=== PATIENT | female | born 1960 | race Caucasian/White ===

== ENCOUNTER 2019-04-15 10:55 | Inpatient (IN) ==
--- NOTE | 2019-04-04 15:06 | PAT Medication Instructions ---
Medication Instructions Date of Service April 04, 2019 Home Medications duloxetine 20 mg capsule,delayed release 20 mg PO QAM albuterol sulfate [Ventolin HFA] 2 puff INHALATION Q6H PRN aspirin [Aspirin Low Dose] 162 mg PO HS atenolol 25 mg PO BID fexofenadine [Emma Allergy] 180 mg PO QAM furosemide 40 mg PO DAILY PRN omeprazole 20 mg PO HS oxycodone-acetaminophen 1 tab PO DAILY PRN potassium chloride 10 meq PO DAILY PRN rosuvastatin [Crestor] 20 mg PO QPM DO NOT take the morning of surgery fexofenadine [Emma Allergy] 180 mg PO QAM furosemide 40 mg PO DAILY PRN potassium chloride 10 meq PO DAILY PRN Take morning of surgery With a small sip of water, OTHERWISE NOTHING TO EAT OR DRINK AFTER MIDNIGHT: duloxetine 20 mg capsule,delayed release 20 mg PO QAM albuterol sulfate [Ventolin HFA] 2 puff INHALATION Q6H PRN (use if needed; please bring with you to hospital day of surgery if possible) atenolol 25 mg PO BID oxycodone-acetaminophen 1 tab PO DAILY PRN (okay to take up to 4 hours prior to surgery if needed) Take evening before surgery albuterol sulfate [Ventolin HFA] 2 puff INHALATION Q6H PRN (if needed) aspirin [Aspirin Low Dose] 162 mg PO HS atenolol 25 mg PO BID furosemide 40 mg PO DAILY PRN (if needed) omeprazole 20 mg PO HS oxycodone-acetaminophen 1 tab PO DAILY PRN (if needed) potassium chloride 10 meq PO DAILY PRN (if needed) rosuvastatin [Crestor] 20 mg PO QPM Other Notes If you have any questions please call us at [phone] or [phone] or [phone] or [phone]
--- NOTE | 2019-04-05 09:40 | Anesthesiology Consultation ---
Date of Service April 05, 2019 Assessment & Plan (1) Encounter for pre-operative examination: Cardiology clearance 04/12/2019: "She presents today describing stable cardiac signs and symptoms. She has no symptoms suggestive of angina, and her EKG reveals stable findings. I recommend proceeding to elective knee replacement without further cardiac testing with an estimated low risk of perioperative cardiac complication... At this point I counseled her to reduce her aspirin dose from 162 mg of aspirin daily to 81 mg of aspirin daily. This can be continued throughout her operation without interruption." Chart Review Chart Review: Acceptable Risk for Surgery and Patient seen in Pre Admission Testing Teaching & Discussion Instructed NPO after midnight before surgery, except medications with 15 cc of water. Medication instructions provided according to the PAT guidelines. History Surgery Operation Date: 04/15/19 11:30 Proposed Procedures p Right Total Knee Arthroplasty - Rai Thrasher MD Height/Weight Height: 5 ft 4 in Weight: 87.3 kg Allergies Allergy/AdvReac Type Severity Reaction Status Date / Time adhesive tape Allergy Intermediate rash and Verified 03/30/19 12:48 redness pantoprazole Allergy Unknown AFFECTS Verified 03/30/19 12:47 CONCENTRATION bupropion [From Wellbutrin] AdvReac Intermediate Confusion Verified 03/30/19 12:47 hydrocodone AdvReac Mild HEADACHE Verified 03/30/19 12:47 Medications Home Medications Medication Instructions Recorded Confirmed Last Taken duloxetine 20 mg capsule,delayed 20 mg PO QAM 03/28/19 03/30/19 Unknown release albuterol sulfate [Ventolin HFA] 2 puff INHALATION Q6H PRN 03/30/19 03/30/19 Unknown aspirin [Aspirin Low Dose] 162 mg PO HS 03/30/19 03/30/19 Unknown atenolol 25 mg PO BID 03/30/19 03/30/19 Unknown fexofenadine [Emma Allergy] 180 mg PO QAM 03/30/19 03/30/19 Unknown furosemide 40 mg PO DAILY PRN 03/30/19 03/30/19 Unknown omeprazole 20 mg PO HS 03/30/19 03/30/19 Unknown oxycodone-acetaminophen 1 tab PO DAILY PRN 03/30/19 03/30/19 Unknown potassium chloride 10 meq PO DAILY PRN 03/30/19 03/30/19 Unknown rosuvastatin [Crestor] 20 mg PO QPM 03/30/19 03/30/19 Unknown Past Medical History Medical History Anxiety Asthma allergy/exercise induced, well controlled. CAD (coronary artery disease) Initial eval for chest pain showed inconclusive stress test. Subsequent cardiac MRI limited by artifact. Cath declined at that time. Pt to PAT for TKA 09/2017. Note to cardio prompted cath --subsequent CABG x 3. Chronic back pain Degenerative disc disease Degenerative joint disease, right, ankle Depression GERD (gastroesophageal reflux disease) Hyperlipidemia Hypertension Osteoarthritis Right knee DJD Sciatica Stable angina with palpitations -- since Dr Colmenares changed medication October 2018 symptoms are improving. Exercise / Class Metabolic Activity II 4-5 Yardwork/Stairs/Walk up hill (Mild +SOB with exertion/FOS but denies CP. 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 Past Family History Family History (Updated 03/30/19 @ 13:00 by Ivonne Dunbar RN) Grandmother (Maternal) FHx: myocardial infarction FHx: breast cancer Past Surgical History Surgical History (Updated 04/05/19 @ 13:44 by Jaspal Fung) History of cardiac cath 09/2017 History of colonoscopy History of coronary artery bypass graft x3 vessels (September 2017) LEONIDES Pinto. Follows with Dr. Colmenares History of esophageal dilatation History of esophagogastroduodenoscopy (EGD) History of open reduction and internal fixation (ORIF) procedure right ankle History of tonsillectomy Hx of meniscectomy of right knee S/P bilateral breast reduction Past Anesthesia History No Hx of Anesthesia Complications and No Family Hx of Anesthesia Complications History of PONV No Hx of PONV and Hx of Motion Sickness Social History Smoking Status: Never smoker Do You Dip or Chew Tobacco: No Hx Alcohol Use: Yes alcohol intake frequency: holidays/special occasions only Hx Substance Use: No substance use type: does not use Review of Systems Pt denies any recent chest pain, shortness of breath, palpitations, cough, fever or URI. Physical Exam Vital Signs BP: 116/74 P: 65bpm SPO2: 98% RA T: 98.3 F R: 16 ENMT Mouth: + dental restorations (one crown bottom R) and + chipped teeth (bottom L side few broken); no loose teeth Thyromental Distance: > or= 3.5 Finger Breadths (3.5) Mallampati Class: II Neck normal visual inspection; neck extension not limited Respiratory normal respiratory effort Auscultation: lungs clear to auscultation bilaterally Cardiovascular Rate/Rhythm: regular rate and regular rhythm Heart Sounds: no murmur Vessels: no carotid bruit Extremities: no edema Midline sternotomy scar. Testing Laboratory Results 04/05/19 09:15 04/05/19 09:15 PT 10.7 Seconds (9.0-12.0) 04/05/19 09:15 INR 1.0 (0.9-1.1) 04/05/19 09:15 APTT 27.2 Seconds (21.0-31.0) 04/05/19 09:15 Blood Type O Positive 04/05/19 09:15 Antibody Screen NEGATIVE 04/05/19 09:15 Electrocardiogram Date: 08/31/18 Findings: + NSR @ (62bpm) Possible LAE. NSTWA. Chest X-Ray Date: 04/05/19 Findings: + NAD Echocardiogram Date: 01/05/19 EF: 65-69% Mild concentric LVH. Left ventricular wall motion is normal. Grade 1 diastolic dysfunction. No significant valvular heart disease.
--- NOTE | 2019-04-05 10:17 | XRay Report ---
XR chest Pre-admission PA/Lat CLINICAL HISTORY: Preoperative chest COMPARISON STUDY: August 2017 FINDINGS: There are postsurgical changes of a midline sternotomy. There is no failure. There is no fo ariel pulmonary consolidation. There are no pleural effusions.[ IMPRESSION: No active disease in the chest. Electronically signed by: Tayo Willams M.D. 04/05/2019 10:16 AM
[2019-04-05 11:09] LABS: Basophils # (auto) 0.03 K/uL (0-0.2); Basophils % (auto) 0.8 %; Eosinophils % (auto) 5.5 %; Hematocrit (blood only) 39.8 % (37-47); Immature Granulocytes # (auto) 0.01 K/uL (0.00-0.02); Immature Granulocytes % (auto) 0.3 %; Lymphocytes # (auto) 1.31 K/uL (1.2-3.4); Lymphocytes % (auto) 36.1 %; Mean Corpuscular Hemoglobin 29.3 pg (25-34); Mean Corpuscular Hgb Conc 32.7 g/dL (32-36); Mean Corpuscular Volume 89.6 fL (80-100); Mean Platelet Volume 10.5 fL (7.4-10.4); Monocytes # (auto) 0.33 K/uL (0.11-0.59); Monocytes % (auto) 9.1 %; Neutrophils # (auto) 1.75 K/uL (1.4-6.5); Neutrophils % (auto) 48.2 %; Platelet Count 288 K/uL (130-400); RDW Coefficient of Variation 13.5 % (11.5-14.5); RDW Standard Deviation 44.7 fL (36.4-46.3); Red Blood Count 4.44 M/uL (4.2-5.4); White Blood Count 3.63 K/uL (4.8-10.8)
[2019-04-05 11:23] LABS: Partial Thromboplastin Time 27.2 Seconds (21.0-31.0); Prothrombin Time 10.7 Seconds (9.0-12.0)
[2019-04-05 11:50] LABS: BUN Creatinine Ratio 20.9 (10-20); Calcium 9.3 mg/dl (8.5-10.1); Creatinine Clr Calc Pharmacy 88.5 ml/min; Est GFR (African American) 102.6; Est GFR (Non-African American) 88.5; Potassium 4.3 mmol/L (3.5-5.1)
[~2019-04-15 10:55] MED LIST: ACETAMINOPHEN 500 MG TAB PO SCH; BUPIVACAINE 0.5 % 5 MG/1 ML PF 10ML VIAL ONE; BUPIVACAINE LIPOSOME/PF 266 MG, BUPIVACAINE/EPINEPHRINE 50 ML, SODIUM CHLORIDE 0.9% 30 ... INFIL SCH; BUPIVACAINE/EPINEPHRINE 0.25% 1:200,000 30 ML VIAL ONE; CEFAZOLIN 2000MG 2,000 MG/15 ML SYR IV SCH; DEXAMETHASONE SOD INJ 4 MG/ML VIAL ONE; GABAPENTIN 600 MG DOSE PO SCH; LR 500ML BOLUS, THEN 15ML/HR IV SCH; LR 60ML/HR IV SCH; METOCLOPRAMIDE HCL 10 MG TABLET PO SCH; SCOPOLAMINE 1.5 MG TDSY TD SCH; TRANEXAMIC ACID 1,000 MG **IV Intra-op IV SCH
--- NOTE | 2019-04-15 11:41 | History & Physical Bridge Note ---
Date of Service April 15, 2019 History & Physical Bridge Note I have examined the patient, reviewed the History & Physical and in the interval since the performance of the History & Physical I have noted the following changes of clinical significance: no changes noted
[2019-04-15] MEDS ORDERED: TRANEXAMIC ACID / 0.7% NACL 1000MG/100ML BAG IV ONE (12:12)
[2019-04-15] MEDS ORDERED: LIDOCAINE HCL 2% 2 ML VIAL/AMP(20MG/ML) INFIL ONE (13:21)
[2019-04-15] MEDS ORDERED: PROPOFOL IV EMULSION 10 MG/ML 20 ML VIAL IV ONE (13:22)
[2019-04-15] MEDS ORDERED: fentaNYL citrate 100 MCG/2 ML VIAL ONE (13:22)
[2019-04-15] MEDS ORDERED: MIDAZOLAM HCL 1 MG/ML 2ML VIAL ONE (13:22)
[2019-04-15] MEDS: CHECK SCOPOLAMINE PATCH PLACEMENT SCH ×3 (13:32→23:45)
[2019-04-15] MEDS ORDERED: ONDANSETRON INJ 2 MG/ML 2 ML VIAL IV PRN ×2 (13:38→17:10)
[2019-04-15] MEDS ORDERED: ePHEDrine sulfate 50 MG/ML AMP IV PRN (13:38)
[2019-04-15] MEDS ORDERED: ATROPINE SULFATE 0.1 MG/ML 10ML SYR IV PRN (13:38)
[2019-04-15] MEDS ORDERED: fentaNYL citrate 100 MCG/2 ML VIAL IV PRN (13:38)
[2019-04-15] MEDS ORDERED: BUPIVACAINE 0.25% 30 ML VIAL ONE (13:55)
[2019-04-15] MEDS ORDERED: BUPIVACAINE LIPOSOME 1.3% 266 MG/20 ML VIAL ONE (13:56)
[2019-04-15] MEDS ORDERED: SODIUM CHLORIDE 0.9% PF 50 ML VIAL ONE (13:56)
[2019-04-15] MEDS ORDERED: EPINEPHrine INJ 1 MG/ML AMP ONE (13:56)
[2019-04-15] MEDS ORDERED: BACITRACIN INJ 50,000 UNIT VIAL ONE (13:56)
--- NOTE | 2019-04-15 15:54 | Post Operative Brief Note ---
PG Immediate Post Op with CF Date of Surgery April 15, 2019 Pre & Post Diagnosis Operation Date: 04/15/19 13:20 Pre-Op Diagnosis: Right Knee Degenerative Joint Disease Post-Op Diagnosis: Right Knee Degenerative Joint Disease I identified the patient and participated in the time-out.: Yes Procedure Operation Date: 04/15/19 13:20 Actual Procedures p Right Total Knee Arthroplasty(Right) - Rai Thrasher MD Surgeon Rai Thrasher MD Fur Blowing Machine Operator Reggie, PAC Estimated Blood Loss 50 Findings Consistent with Post-Op Diagnosis Fluids 1600 cc Specimens Specimen Description: A. Right knee bone and tissue Drains Pinedo Catheter Anesthesia Type Spinal MAC Complications none Disposition Accompanied Patient To Recovery: No Disposition: Recovery Room
--- NOTE | 2019-04-15 16:23 | XRay Report ---
XR knee RT 1 or 2V routine CLINICAL HISTORY: Surgical Post Op COMPARISON: Right knee radiographs March 28, 2019. FINDINGS: Alignment of the total right knee arthroplasty is anatomic. There is no fracture or unexpe cted radiopaque foreign body. There are skin hector. IMPRESSION: Expected findings following total right knee arthroplasty. Electronically signed by: Edvin Baker M.D. 04/15/2019 4:22 PM
[2019-04-15] MEDS ORDERED: METOCLOPRAMIDE HCL INJ 5 MG/ML 2 ML VIAL IV PRN (17:10)
[2019-04-15] MEDS ORDERED: NALOXONE HCL 0.4 MG/1 ML VIAL/CARP IV PRN (17:10)
[2019-04-15] MEDS ORDERED: MAGNESIUM HYDROXIDE SUSP 30 ML UDC PO PRN (17:10)
[2019-04-15] MEDS ORDERED: bisacodyL 10 MG SUPP PR PRN (17:10)
[2019-04-15] MEDS ORDERED: HYDROmorphone INJ 0.5 MG/0.5 ML SYR IV PRN (17:10)
[2019-04-15] MEDS ORDERED: ALBUTEROL HFA 8 GM INHALER INH PRN (17:10)
[2019-04-15] MEDS ORDERED: SODIUM CHLORIDE 0.9% 1000ML 1,000 ML IV SCH (17:10)
[2019-04-15] MEDS ORDERED: ALUMINUM/MAGNESIUM SUSP 30 ML UDC PO PRN (17:10)
[2019-04-15] MEDS ORDERED: FUROSEMIDE 40 MG TAB PO PRN (17:10)
[2019-04-15] MEDS ORDERED: POTASSIUM CHLORIDE 10 MEQ TABCR PO PRN (17:10)
--- NOTE | 2019-04-15 18:01 | Anesthesiology Progress Note ---
Date of Service April 15, 2019 Anesthesia Post Procedure Vital Signs Vital Signs: Temp Pulse Pulse Pulse Resp BP BP 04/15/19 17:34 36.7 C 76 16 131/71 04/15/19 16:40 37.0 C 80 13 133/62 04/15/19 16:30 78 16 129/61 04/15/19 16:20 79 18 127/61 04/15/19 16:10 80 13 128/64 04/15/19 16:01 36.6 C 76 12 139/63 04/15/19 11:57 37.0 C 67 18 125/75 Pulse Ox 04/15/19 17:34 97 04/15/19 16:40 99 04/15/19 16:30 98 04/15/19 16:20 99 04/15/19 16:10 100 04/15/19 16:01 100 04/15/19 11:57 99 Pain Intensity Right Knee: Pain Intensity: 0 Transfer of Care Handoff Completed per policy Notes Mental Status: alert / awake / arousable and participated in evaluation Patient Amnestic to Procedure: Yes Nausea / Vomiting: adequately controlled Pain: adequately controlled Airway Patency, RR, SpO2: stable & adequate BP & HR: stable & adequate Hydration State: stable & adequate Anesthetic Complications: no major complications apparent and Pt Satisfied with anesthetic care
[2019-04-15] MEDS: FERROUS GLUCONATE 324 MG TAB PO SCH (18:58)
[2019-04-15] MEDS: ASCORBIC ACID 500 MG TAB PO SCH (18:59)
[2019-04-15] MEDS: KETOROLAC 30 MG/ML VIAL IV SCH ×2 (18:59→23:44)
[2019-04-15] MEDS: ROSUVASTATIN CALCIUM 20 MG TAB PO SCH (20:28)
[2019-04-15] MEDS: OMEPRAZOLE 20 MG CAPCR PO SCH (20:28)
[2019-04-15] MEDS: SENNA 8.6 MG TAB PO SCH (20:28)
[2019-04-15] MEDS: TAPENTADOL HCL ER 50 MG TABCR PO SCH (20:28)
[2019-04-15] MEDS: ASPIRIN 81 MG ECTAB PO SCH (20:28)
[2019-04-15] MEDS: ATENOLOL 25 MG TABLET PO SCH (20:28)
[2019-04-15] MEDS: DOCUSATE SODIUM 100 MG CAP PO SCH (20:28)
[2019-04-15] MEDS: ACETAMINOPHEN 500 MG TAB PO SCH (21:12)
[2019-04-15] MEDS: CEFAZOLIN 2000MG 2,000 MG/15 ML SYR IV SCH (21:14)
[2019-04-15] MEDS ORDERED: TRANEXAMIC ACID / 0.7% NACL 1,000 MG/100 ML BAG IV SCH (21:57)
[2019-04-15] MEDS ORDERED: Nursing to Pharmacy Communication ONE (23:46)
[2019-04-16] MEDS: ACETAMINOPHEN 500 MG TAB PO SCH ×3 (05:37→21:31)
[2019-04-16] MEDS: CEFAZOLIN 2000MG 2,000 MG/15 ML SYR IV SCH (05:37)
[2019-04-16] MEDS: KETOROLAC 30 MG/ML VIAL IV SCH ×4 (05:38→23:42)
[2019-04-16 06:09] LABS: Hematocrit (blood only) 37.4 % (37-47); Hemoglobin 12.2 g/dL (12.0-16.0); Mean Corpuscular Hemoglobin 29.2 pg (25-34); Mean Corpuscular Hgb Conc 32.6 g/dL (32-36); Mean Corpuscular Volume 89.5 fL (80-100); Platelet Count 281 K/uL (130-400); RDW Coefficient of Variation 13.2 % (11.5-14.5); RDW Standard Deviation 43.1 fL (36.4-46.3); Red Blood Count 4.18 M/uL (4.2-5.4); White Blood Count 11.27 K/uL (4.8-10.8)
[2019-04-16 06:38] LABS: BUN Creatinine Ratio 16.2 (10-20); Calcium 9.1 mg/dl (8.5-10.1); Creatinine Clr Calc Pharmacy 69.3 ml/min; Est GFR (African American) 75.1; Est GFR (Non-African American) 64.8; Potassium 4.3 mmol/L (3.5-5.1)
--- NOTE | 2019-04-16 08:37 | Operative Report ---
Post Operative Report Pre & Post Diagnosis Operation Date: 04/15/19 13:20 Pre-Op Diagnosis: Right Knee Degenerative Joint Disease Post-Op Diagnosis: Right Knee Degenerative Joint Disease I identified the patient and participated in the time-out.: Yes Procedure Operation Date: 04/15/19 13:20 Actual Procedures p Right Total Knee Arthroplasty(Right) - Rai Thrasher MD Surgeon Rai Thrasher MD Rapier Insertion Loom Fixer Reggie, PAC Estimated Blood Loss 50 Findings Consistent with Post-Op Diagnosis Operative findings revealed advanced right knee DJD with extensive grade 4 changes medial femoral condyle medial tibial plateau. It is spotty grade 4 changes laterally as well as the patellofemoral joint. Moderate-sized joint effusion. Osteophytes of the medial femoral condyle medial till plateau Fluids 1600 cc Specimens Right knee sent for pathology Drains None. Anesthesia Type Spinal MAC Complications none Disposition Accompanied Patient To Recovery: No Disposition: Recovery Room Indications Is a 58-year-old fairly active female is had a long history of right knee problems. She underwent a right knee arthroscopy about 5 years ago that gave her several years of relief. Over the past several years she developed increased pain discomfort in her right knee. She was actually scheduled for knee replacement surgery over a year ago but that her work-up shows no cardiac disease and she subsequently had bypass surgery. He is now recovering from this. She continues to be disabled by her knee pain. X-rays show advanced no compartment arthritis. She elected to proceed with total knee arthroplasty Description of Procedure Implants consisted of: 1. Vanguard size 65" stabilized femoral component. 2. Biomet size 67 tibial tray. 3. 10 mm posterior large polyethylene insert. 4. 28 x 8 all poly-patella. Patient was taken to the operating room identified and placed on the operating table supine position contact her with the [place] IV antibiotics provided by the anesthesia team. Spinal anesthetic and abductor canal block had been provided in the holding area. Pinedo cath was placed in sterile fashion the right thigh tract was then placed in the right lower extremity was then prepped and draped in usual sterile fashion. Right leg was elevated and exsanguinated with use of an Esmarch interspace at 3 mmHg. An anterior process right knee was then formed 1-2 incisions over the patella. Sharp dissection Through subtenons tissue level of the extensor mechanism. Medial parapatellar arthrotomy incision was made. Some subperiosteal dissection was carried out medially for the fat pad was dissected the knee patella tendon. Mild patellofemoral ligament was released from patella was everted and knee was flexed. The osteophytes were taken off the distal femur. The ACL and PCL were then released the distal femur and tibia was subluxated anteriorly. In the external tibial alignment jig was then placed in the interface of the tibia and adjusted 14 mm medially. Proximal tibial cut was made to move about 2 to 3 mm of bone from most patient aspect medial to the plateau. The tibia was then sized to a size 67. Some osteophytes were taken off medial and posterior medially. Attention drawn to the femur. The distal femur was entered with a sharp drill. Intramedullary canal was suction. I right the 5 degree valgus cutting guide was placed. This from cutting block was in place. This femoral cut was made to take an additional 3 mm bone off distal femur. The femur was then sized to a size 65. He became box and parallel to the R axis which was 4 degrees of external rotation. Anterior cut, anterior chamfer, posterior cut, posterior chamfer cuts were made. Box cutting guide was placed in the just slightly lateral. The box cut was made and the knee was flexed for the remnants Menisci excised with the osteophytes were taken off the posterior aspect of the femur. A trial femoral component was placed with. The tibial tray was then max max rotation drill was 9.3 his great defect compartment infundibular tract. I then trialed the knee and the 10 mm insert fit most appropriately. Patient then drawn to the patella. The patella was cleaned of all soft tissues. Patella thickness measured 23 mm in thickness was cut down to 13 to a sizable/28 patella. The lateral osteophyte was removed. Patella button was placed. Knee was taken through range of motion patella tracked lateral and had a tilt to it. I examined the implants very carefully daily with respect to the femoral rotation everything seemed appropriate. The flexion and extension gaps were equal and I elected to this and tilt and weight and reevaluate once the tourniquet and down. All trial implants were removed. Bone plug was placed into his femur limit blood loss putting down by 5 closed the cement was mixed. BiomNowForceguard size 65 right posterior by femoral component, size 67 tibial tray, 10 mm posterior bite polyethylene insert, 20 evaluate all poly-patella and cement placed. He was right on the folks that is post menarchal and found symmetrically warm. The pericapsular tissues were injected with total 100 cc of combination twice X pro, 30 cc normal saline, 50 cc of quarter Marcaine with epinephrine. Patient did receive 1 g tranexamic acid. A tourniquet was then let down for tourniquet time 55 minutes. Hemostasis assured electrocautery. I then reevaluated the extensor mechanism. Patella was tracking better. There was still some slight tilt to it so I did do a little of a lateral release laterally. Down attention then turned toward closing. The wounds irrigated with copious also pulsatile lavage solution. Instrument was then closed with accommodation 1 PDS suture Vicryl suture in [id number] fashion for the extensor mechanism check found to be intact the subcutaneous was then closed 2 Dexon suture in a buried interrupted fashion skin was closed skin hector below was then cleaned dried and sterile dressing of Xeroform, 4 x 4's, sterile cast padding, Tre bandage applied. Patient then transferred to the recovery room in stable condition. Patient tolerated procedure well and complications. I attest to the content of the Intraoperative Record and any orders documented therein. Any exceptions are noted below.
[2019-04-16] MEDS: ASCORBIC ACID 500 MG TAB PO SCH ×2 (08:46→17:43)
[2019-04-16] MEDS: FERROUS GLUCONATE 324 MG TAB PO SCH ×2 (08:46→17:43)
[2019-04-16] MEDS: FEXOFENADINE HCL 180 MG TAB PO SCH (08:46)
[2019-04-16] MEDS: DOCUSATE SODIUM 100 MG CAP PO SCH ×2 (08:47→20:09)
[2019-04-16] MEDS: ASPIRIN 81 MG ECTAB PO SCH ×2 (08:47→20:10)
[2019-04-16] MEDS: DULOXETINE HCL 20 MG CAP PO SCH (08:47)
[2019-04-16] MEDS: MULTIVITAMIN TAB PO SCH (08:47)
[2019-04-16] MEDS: ATENOLOL 25 MG TABLET PO SCH ×2 (08:48→20:09)
[2019-04-16] MEDS: TAPENTADOL HCL ER 50 MG TABCR PO SCH ×2 (08:48→20:09)
[2019-04-16] MEDS: HYDROmorphone HCL 2 MG TAB PO PRN ×4 (08:48→21:31)
--- NOTE | 2019-04-16 09:29 | Progress Note ---
DATE: 04/16/2019 SUBJECTIVE: A 58-year-old female postop day 1 from right knee replacement. She is doing okay. Pain has been pretty significant overnight. She has been on chronic narcotics, which will make pain control a little bit more difficult. No chest pain or shortness of breath. Not feeling dizzy or lightheaded. OBJECTIVE: VITAL SIGNS: Temperature 36.8. Vital signs stable. GENERAL: Shows a pleasant, middle-aged female. She is sitting up on bed, though looks reasonably comfortable this morning. LUNGS: Clear to auscultation. HEART: Regular rate and rhythm. ABDOMEN: Soft, nontender, nondistended. EXTREMITIES: Grossly neurovascularly intact except as follows: Examination of the right leg reveals her to be currently doing heel prop. Leg is well aligned. It is straight. Dressing is clean, dry and intact. No drainage. She can dorsiflex and plantarflex her foot appropriately. She is neurologically intact. LABORATORY DATA: Hemoglobin is 12.2. Hematocrit 37.4. White cell count 11.23. Electrolytes are stable. ASSESSMENT: A 58-year-old female postop day 1 from right knee replacement, doing pretty well. Having quite a bit of pain overnight, but has been on chronic pain meds in the past which is going to make pain control a little bit more difficult. She does not look terribly uncomfortable this morning. PLAN: 1. DVT prophylaxis including thigh-high TEDs, SCDs, and aspirin twice a day. 2. PT/OT. She will weightbear as tolerated. Right total knee protocol. 3. Pain control, doing okay with current pain regimen. We may have to adjust her meds as time goes on depending how things go with therapy. 4. Disposition: She is hoping to be discharged home with some home health once medically stable and pain controlled.
[2019-04-16] MEDS: ROSUVASTATIN CALCIUM 20 MG TAB PO SCH (20:10)
[2019-04-16] MEDS: OMEPRAZOLE 20 MG CAPCR PO SCH (20:10)
[2019-04-16] MEDS: SENNA 8.6 MG TAB PO SCH (20:10)
[2019-04-17] MEDS: HYDROmorphone HCL 2 MG TAB PO PRN ×2 (01:33→07:30)
[2019-04-17] MEDS: KETOROLAC 30 MG/ML VIAL IV SCH (05:30)
[2019-04-17] MEDS: ACETAMINOPHEN 500 MG TAB PO SCH (05:30)
[2019-04-17] MEDS: TAPENTADOL HCL ER 50 MG TABCR PO SCH (07:30)
[2019-04-17] MEDS: ATENOLOL 25 MG TABLET PO SCH (07:31)
[2019-04-17] MEDS: FEXOFENADINE HCL 180 MG TAB PO SCH (07:31)
[2019-04-17] MEDS: DOCUSATE SODIUM 100 MG CAP PO SCH (07:31)
[2019-04-17] MEDS: DULOXETINE HCL 20 MG CAP PO SCH (07:31)
[2019-04-17] MEDS: ASPIRIN 81 MG ECTAB PO SCH (07:31)
[2019-04-17] MEDS: FERROUS GLUCONATE 324 MG TAB PO SCH (07:31)
[2019-04-17] MEDS: MULTIVITAMIN TAB PO SCH (07:31)
[2019-04-17] MEDS: ASCORBIC ACID 500 MG TAB PO SCH (07:31)
--- NOTE | 2019-04-17 08:04 | Progress Note ---
DATE: 04/17/2019 SUBJECTIVE: A 58-year-old white female postop day 2 from right knee replacement. She is doing okay. Having some pain, but does okay with pain medicines. No chest pain or shortness of breath. Not feeling dizzy or lightheaded. OBJECTIVE: VITAL SIGNS: Temperature 36.6. Vital signs stable. GENERAL: Shows a pleasant, middle-aged female. She is sitting up in bed, looks reasonably comfortable. EXTREMITIES: Examination of the right leg reveals the leg to be well aligned. Dressing is clean, dry and intact. No significant drainage. Calf is soft and supple. She is neurologically intact. ASSESSMENT: A 58-year-old white female postop day 2 from right knee replacement, doing pretty well. Pain has been reasonably well controlled. PLAN: 1. DVT prophylaxis including thigh-high TEDs, SCDs and aspirin twice a day. 2. PT/OT. Weight bear as tolerated. Right total knee protocol. 3. Pain control, doing pretty well with current pain regimen. 4. Disposition: Plan to discharge to home with some home health later today.
--- NOTE | 2019-04-18 23:08 | Discharge Summary ---
ADMITTING PHYSICIAN AND SURGEON: Dr. Rai Thrasher. ADMITTING DIAGNOSIS: Right knee degenerative joint disease. SURGERY PERFORMED: Right total knee arthroplasty. SECONDARY DIAGNOSES: Hypertension, elevated cholesterol, coronary artery disease, history of bypass, sleep apnea, asthma, gastroesophageal reflux disease, back pain, sciatica. CONSULTS: None obtained. HISTORY AND PHYSICAL EXAMINATION: Well documented in the patient's chart. HOSPITAL COURSE: The patient was admitted on 04/15/2019, underwent total knee arthroplasty, tolerated the procedure well. There were no complications. She was transferred to the PACU postoperatively and later to the orthopedic floor for further care. She was given Ancef for antibiotic prophylaxis, HOA stockings, SCDs and aspirin for DVT prophylaxis. Her hemoglobin, hematocrit and vital signs were monitored during her hospital stay and remained stable, did not require any blood transfusions. There were no complications. By postoperative day 2, she was tolerating a regular diet, pain was reasonably controlled with oral pain medicine. She was participating in physical therapy. By postop day 2, she was discharged home, set up with home health services. She was given printed discharge instructions as well as new prescriptions for extra strength Tylenol, aspirin and Dilaudid. Continue her home medications with the exception of her home dosing of aspirin which was changed and Percocet which was discontinued. Continue physical therapy, weightbearing as tolerated, HOA stockings. Follow up approximately 2 weeks postop or sooner if there are any problems or concerns.
== END 2019-04-17 09:46 | disposition home health service (06) | DRG 470 ==
LOC: ASU 10:55 → 3E 15:58

== ENCOUNTER 2024-03-01 06:27 | Observation (INO) ==
--- NOTE | 2024-02-01 16:19 | PAT Medication Instructions ---
Medication Instructions Date of Service February 01, 2024 Home Medications Medication Instructions Recorded amoxicillin 500 mg tablet 2,000 mg (4 x 500 mg) PO ONCE #4 07/08/21 tabs duloxetine 20 mg capsule,delayed release (Cymbalta) 40 mg PO QAM albuterol sulfate 90 mcg/actuation aerosol inhaler (Ventolin HFA) 2 puff inhalation Q6H PRN Shortness Of Breath atenolol 50 mg tablet 50 mg PO HS fexofenadine 180 mg tablet (Emma Allergy) 180 mg PO QAM furosemide 40 mg tablet (Lasix) 40 mg PO DAILY PRN Edema omeprazole 20 mg capsule,delayed release 20 mg PO HS potassium chloride 10 mEq capsule,extended release 10 meq PO DAILY PRN with lasix rosuvastatin 20 mg tablet (Crestor) 20 mg PO QPM aspirin 81 mg tablet,delayed release (Adult Aspirin Regimen) 81 mg PO QPM cyanocobalamin (vitamin B-12) 500 mcg tablet 500 mcg PO QAM amoxicillin 500 mg tablet 2,000 mg (4 x 500 mg) PO ONCE Beet Root Supplement 2 tab PO DAILY oxycodone 5 mg tablet 5 mg PO DAILY PRN Pain Continue as directed amoxicillin 500 mg tablet 2,000 mg (4 x 500 mg) PO ONCE (if needed) STOP taking 2 weeks before surgery Beet Root Supplement 2 tab PO DAILY DO NOT take the morning of surgery fexofenadine 180 mg tablet (Emma Allergy) 180 mg PO QAM furosemide 40 mg tablet (Lasix) 40 mg PO DAILY PRN Edema potassium chloride 10 mEq capsule,extended release 10 meq PO DAILY PRN with lasix cyanocobalamin (vitamin B-12) 500 mcg tablet 500 mcg PO QAM Take morning of surgery With a small sip of water, OTHERWISE NOTHING TO EAT OR DRINK AFTER MIDNIGHT: duloxetine 20 mg capsule,delayed release (Cymbalta) 40 mg PO QAM albuterol sulfate 90 mcg/actuation aerosol inhaler (Ventolin HFA) 2 puff inhalation Q6H PRN Shortness Of Breath (use if needed; please bring with you to hospital day of surgery if possible) oxycodone 5 mg tablet 5 mg PO DAILY PRN Pain (if needed) Take evening before surgery albuterol sulfate 90 mcg/actuation aerosol inhaler (Ventolin HFA) 2 puff inhalation Q6H PRN Shortness Of Breath (if needed) atenolol 50 mg tablet 50 mg PO HS omeprazole 20 mg capsule,delayed release 20 mg PO HS furosemide 40 mg tablet (Lasix) 40 mg PO DAILY PRN Edema (if needed) potassium chloride 10 mEq capsule,extended release 10 meq PO DAILY PRN with lasix (if needed) rosuvastatin 20 mg tablet (Crestor) 20 mg PO QPM aspirin 81 mg tablet,delayed release (Adult Aspirin Regimen) 81 mg PO QPM (unless surgeon directed otherwise) oxycodone 5 mg tablet 5 mg PO DAILY PRN Pain (if needed) Other Notes If you have any questions please call us at [phone] or [phone] or [phone] or [phone]
--- NOTE | 2024-02-11 15:35 | Anesthesiology Consultation ---
Date of Service February 11, 2024 Assessment & Plan (1) Encounter for pre-operative examination: - Infectious disease screening: Per assessment on 02/11/24: No known recent infectious disease contacts or current infectious disease symptoms. - Outpatient joint assessment: Pt currently scheduled for inpatient pathway. If surgeon requests review for outpatient joint pathway, patient is not recommended candidate for outpatient joint program from anesthesia standpoint based on available information. - S/P Right TKA (04/15/19): SAB at L3/4 + regional at [facility] - Cardiology visit (07/15/23): "Planning orthopedic ankle surgery next month.. compensated, class 2 functional capacity.. Symptoms improved with addition of low-dose furosemide.. HTN- uncontrolled.. Transition furosemide to torsemide 10mg daily.. Titrate losartan to 50mg daily.. Functional capacity imprved.. ECG stable at this time without ischemic changes. Perioperative cardiovascular risk is considered moderate. Cardiac catheterization with patent by past [sic, bypass] grafts.. No further cardiac testing or intervention would lower her risk at this time" > Ankle surgery done 08/2023- per patient, no issues with anesthesia but did have significant post-op pain. - PCP visit (01/18/24): "Left knee is now bothering her. Scheduled for replacement of left knee on 03/01/24.. Coronary artery disease involving standing rock coronary artery of standing rock heart with unstable angina pectoris.. Follow up with cardiology.. HTN, goal below 140/90.. Controlled on current treatment. Continue current treatment plan.. Continue statin.. Hepatic steatosis.. Encouraged weight loss with low carb Mediterranean Diet.." - Patient acceptable risk for surgery pending surgeon-ordered preop CRP (not done with preop testing d/t lab error, TBD LEONIDES Myles in "near future"). Chart Review Chart Review: Patient seen in Pre Admission Testing Teaching & Discussion Pre-Anesthesia Teaching/Discussion Notes: Instructed NPO after midnight before surgery,except medications with 15 cc of water. Medication instructions provided according to the PAT guidelines. History Surgery Operation Date: 03/01/24 07:00 Proposed Procedures p Left Total Knee Arthroplasty - Rai Thrasher MD Height/Weight Height: 5 ft 5 in Weight: 86 kg Allergies Allergy/AdvReac Type Severity Reaction Status Date / Time adhesive tape Allergy Intermediate Rash, Verified 02/01/24 11:45 redness bupropion [From Wellbutrin] AdvReac Intermediate Confusion Verified 02/01/24 11:45 NSAIDS (Non-Steroidal AdvReac Intermediate Gastrointestinal Verified 02/01/24 11:45 Anti-Inflamma Upset pantoprazole AdvReac Intermediate Affects Verified 02/01/24 11:45 concentration hydrocodone AdvReac Mild Headache Verified 02/01/24 11:45 Medications Home Medications Medication Instructions Recorded Confirmed Last Taken duloxetine 20 mg capsule,delayed 40 mg PO QAM 03/28/19 02/01/24 03/26/21 09:00 release (Cymbalta) albuterol sulfate 90 mcg/actuation 2 puff inhalation Q6H PRN 03/30/19 02/01/24 2 Weeks Ago aerosol inhaler (Ventolin HFA) Shortness Of Breath ~03/13/21 atenolol 50 mg tablet 50 mg PO HS 03/30/19 02/01/24 03/26/21 18:00 fexofenadine 180 mg tablet 180 mg PO QAM 03/30/19 02/01/24 03/26/21 09:00 (Emma Allergy) furosemide 40 mg tablet (Lasix) 40 mg PO DAILY PRN Edema 03/30/19 02/01/24 2 Weeks Ago ~03/13/21 omeprazole 20 mg capsule,delayed 20 mg PO HS 03/30/19 02/01/24 03/26/21 18:00 release potassium chloride 10 mEq 10 meq PO DAILY PRN with lasix 03/30/19 02/01/24 2 Weeks Ago capsule,extended release ~03/13/21 rosuvastatin 20 mg tablet (Crestor) 20 mg PO QPM 03/30/19 02/01/24 03/26/21 18:00 aspirin 81 mg tablet,delayed 81 mg PO QPM 05/23/20 02/01/24 03/24/21 release (Adult Aspirin Regimen) cyanocobalamin (vitamin B-12) 500 500 mcg PO QAM 03/25/21 02/01/24 03/26/21 09:00 mcg tablet amoxicillin 500 mg tablet 2,000 mg (4 x 500 mg) PO ONCE #4 07/08/21 02/01/24 Unknown tabs Beet Root Supplement 2 tab PO DAILY 02/01/24 02/01/24 Unknown oxycodone 5 mg tablet 5 mg PO DAILY PRN Pain 02/01/24 02/01/24 Unknown Past Medical History Medical History Anxiety Arthritis Asthma Allergy/exercise induced, "well controlled" CAD (coronary artery disease) s/p CABGx3 (2017) Follows with Dr. Arguello Carotid artery stenosis Carotid duplex 11/2020: B/L ICA stenosis < 50% Cervical radiculopathy ROM limitations Chronic back pain Degenerative disc disease Depression GERD (gastroesophageal reflux disease) Hyperlipidemia Hypertension Osteoarthritis Sciatica Exercise / Class Metabolic Activity III < 4 Walking/Shop/Light housework (one FS: No CP, + SOB (stable)) Past Family History Family History Grandmother (Maternal) FHx: myocardial infarction FHx: breast cancer Breast cancer Cancer Heart disease Hypertension Stroke Past Surgical History Surgical History H/O heart bypass surgery CABGx3 (2017) History of cardiac cath 09/2017 History of carpal tunnel release R/L History of colonoscopy History of esophageal dilatation History of esophagogastroduodenoscopy (EGD) History of open reduction and internal fixation (ORIF) procedure right ankle History of tonsillectomy History of tooth extraction History of total right knee replacement Right TKA (04/15/19): SAB at L3/4 + regional at [facility] Hx of meniscectomy of right knee 2019 S/P bilateral breast reduction 2002 Past Anesthesia History No Hx of Anesthesia Complications and No Family Hx of Anesthesia Complications History of PONV No Hx of PONV and Hx of Motion Sickness Social History Smoking Status: Never smoker Do You Dip or Chew Tobacco: No Hx Alcohol Use: No Hx Substance Use: No substance use type: does not use Review of Systems Patient denies chest pain, shortness of breath, dyspnea on exertion, fever, chills, cough, wheezing, palpitations. Physical Exam Vital Signs BP 115/71 P 75 TEMP 98.2 SP02 97%RA RESP 16 Physical Full cervical extension range of motion. Full TMJ range of motion. TMD 3 finger breaths Mallampati Score III Dentition: missing molars, + caps Lungs: clear throughout to auscultation Cardiac: regular rate and rhythm, no murmurs noted Spine: normal Carotid arteries: negative bruit Extremities: no LE edema Lab Results Anesthesia Preop Results Results Anesthesia Widget: WBC 6.74 K/ul (4.8-10.8) 02/11/24 Hgb 13.0 g/dl (12.0-16.0) 02/11/24 Hct 39.0 % (37.0-47.0) 02/11/24 Plt 285 K/uL (130-400) 02/11/24 PT 11.0 Seconds (9.0-12.0) 02/11/24 PTT 27 Seconds (21-31) 02/11/24 INR 1.0 (0.9-1.1) 02/11/24 Blood Type O Positive 02/11/24 Antibody Screen NEGATIVE 02/11/24 Testing Laboratory Results 01/15/24 SODIUM 141 POTASSIUM 4.8 CHLORIDE 106 CO2 25 BUN 17 CREATININE 0.8 GLUCOSE 86 HGBA1C 5.7% Electrocardiogram Date: 08/19/23 Findings: + NSR @ (72) Echocardiogram Date: 05/05/23 LVEF 58%. LV wall motion is normal. No significant valvular disease. Mildly increased concentric LV wall thickness. Grade 1 diastolic dysfunction. Stress Test Date: 01/23/22 There is a small perfusion defect in the mid to distal anterior wall suggestive of myocardial ischemia (However shifting breast attenuation artifact cannot be ruled out as there is normal wall motion on gated SPECT). LVEF calculated greater than 70%. Cardiac Catheterization Date: 02/06/22 3 of 3 bypass grafts are patent. LMCA has distal 50% unchanged from previous cath. RCA angiographically normal. Recommendations: Continued medical management. Follow-up with referring creche attendant. No angiographic explanation for abnormal stress test. Other Testing Carotid duplex Date: 11/19/20 Right carotid artery duplex examination indicates evidence of less than 50% st enosis of the internal carotid artery. Left carotid artery duplex examination indicates evidence of less than 50% stenosis of the internal carotid artery. The right vertebral artery demonstrates antegrade flow. The left vertebral artery demonstrates antegrade antegrade flow. CT PE Date: 08/19/23 No evidence of pulmonary embolus. Mild cardiomegaly without evidence of perica rdial effusion or right heart strain. No pleural effusion. No pneumothorax. Atelectasis in b/l lung meehan with in b/l lung bases.
[~2024-03-01 06:27] MED LIST changes: -ACETAMINOPHEN 500 MG TAB PO SCH; -BUPIVACAINE 0.5 % 5 MG/1 ML PF 10ML VIAL ONE; -BUPIVACAINE LIPOSOME/PF 266 MG, BUPIVACAINE/EPINEPHRINE 50 ML, SODIUM CHLORIDE 0.9% 30 ... INFIL SCH; -BUPIVACAINE/EPINEPHRINE 0.25% 1:200,000 30 ML VIAL ONE; -CEFAZOLIN 2000MG 2,000 MG/15 ML SYR IV SCH; -DEXAMETHASONE SOD INJ 4 MG/ML VIAL ONE; -GABAPENTIN 600 MG DOSE PO SCH; -LR 500ML BOLUS, THEN 15ML/HR IV SCH; -LR 60ML/HR IV SCH; -METOCLOPRAMIDE HCL 10 MG TABLET PO SCH; +ROPIVACAINE 0.5% 5 MG/ML 30 ML VIAL ONE; -SCOPOLAMINE 1.5 MG TDSY TD SCH; -TRANEXAMIC ACID 1,000 MG **IV Intra-op IV SCH
--- NOTE | 2024-03-01 06:39 | History & Physical Bridge Note ---
Date of Service March 01, 2024 History & Physical Bridge Note I have examined the patient, reviewed the History & Physical and in the interval since the performance of the History & Physical I have noted the following changes of clinical significance: no changes noted
[2024-03-01] MEDS ORDERED: PROPOFOL IV EMULSION 10 MG/ML 20 ML VIAL IV ONE (07:24)
[2024-03-01] MEDS ORDERED: ONDANSETRON INJ 2 MG/ML 2 ML VIAL ONE (07:24)
[2024-03-01] MEDS ORDERED: MIDAZOLAM HCL 1 MG/ML 2ML VIAL ONE ×2 (07:25→09:15)
[2024-03-01] MEDS: ACETAMINOPHEN 500 MG TAB PO SCH ×2 (07:44→14:00)
[2024-03-01] MEDS: LR 500ML BOLUS, THEN 15ML/HR IV SCH (07:44)
[2024-03-01] MEDS: METOCLOPRAMIDE HCL 10 MG TABLET PO SCH (07:47)
[2024-03-01] MEDS: LR 60ML/HR IV SCH (07:47)
[2024-03-01] MEDS: FAMOTIDINE 20 MG TAB PO SCH (07:47)
[2024-03-01] MEDS: CeleBREX 200 MG CAP PO SCH (07:50)
[2024-03-01] MEDS ORDERED: fentaNYL citrate PF 100 MCG/2 ML VIAL IV PRN (08:10)
[2024-03-01] MEDS ORDERED: ATROPINE SULFATE 0.1 MG/ML 10ML SYR IV PRN (08:10)
[2024-03-01] MEDS ORDERED: ONDANSETRON INJ 2 MG/ML 2 ML VIAL IV PRN (08:10)
[2024-03-01] MEDS ORDERED: HYDROmorphone INJ 1 MG/ML SYRINGE IV PRN (08:10)
[2024-03-01] MEDS ORDERED: ePHEDrine sulfate 50 MG/ML AMP IV PRN (08:10)
[2024-03-01] MEDS: ceFAZolin 2000MG 2,000 MG/15 ML SYR IV SCH ×2 (09:12→17:19)
[2024-03-01] MEDS ORDERED: fentaNYL citrate PF 100 MCG/2 ML VIAL ONE (09:25)
[2024-03-01] MEDS: ROPIV 0.5% 246mg, Ketorolac 30mg, EPINEPHrine 0.5mg in NSS INFIL SCH (09:46)
[2024-03-01] MEDS: ORTHO JOINT ANESTHETIC ONE (09:47)
[2024-03-01] MEDS: TRANEXAMIC ACID 1,000 MG **IV Intra-op IV SCH (10:06)
--- NOTE | 2024-03-01 10:56 | Operative Report ---
PG Post Operative Report Pre & Post Diagnosis Operation Date: 03/01/24 08:50 Pre-Op Diagnosis: Left Knee Degenerative Joint Disease Post-Op Diagnosis: Left Knee Degenerative Joint Disease I identified the patient and participated in the time-out.: Yes Procedure Operation Date: 03/01/24 08:50 Actual Procedures p Left Total Knee Arthroplasty(Left) - Rai Thrasher MD Surgeon Rai Thrasher MD Manager Quality Improvement Boris Paredes PA-C Estimated Blood Loss 50 Findings Consistent with Post-Op Diagnosis Operative findings were advanced left knee medial and patellofemoral compartment arthritis. She had grade 4 [id number] disease in both areas. The lateral compartment is pretty well spared. She fixed varus deformity to her knee. Moderate sized medial osteophytes. Moderate-sized knee joint effusion. Specimens Left knee sent for pathology. Anesthesia Type Spinal MAC Complications none Disposition Accompanied Patient To Recovery: No Indications Patient is a 63-year-old female whose had a long history of knee problems over the years. She had her right knee replaced about 5 years ago. She continues to bothered by left knee pain discomfort. She been through extensive conservative treatment over the past 5 years which became less successful. She is now elected to proceed with total knee arthroplasty on the left knee. Description of Procedure Operative implants consist of: 1. Biomet Vanguard size 65 left posterior stabilized femoral component. 2. Biomet size 67 tibial tray. 3. 12 mm posterior stabilized polyethylene insert. 4. 28 x 8 all poly patella. The patient was taken to the operating, identified, placed on the operating table in the supine position. All contact areas were appropriately padded. IV antibiotics fibra anesthesia team. A spinal anesthetic and adductor canal block had been Weida in the holding area. A Pinedo catheter was placed in a sterile fashion. The left atrium was then placed in the left lower extremity was then prepped and draped in usual sterile fashion. The left leg was elevated and exsanguinated with use of an Esmarch and turn was placed at 300 mmHg. An anterior approach the left knee was then performed to longitudinal incision centered over the patella. Sharp dissection was Through subcutaneous tissue down the extensor mechanism. A medial parapatellar arthrotomy incision was made. Some subperiosteal dissection was carried out medially. The fat pad was resected from his patella tendon. The lateral patellofemoral ligament was released. Patella subluxate laterally knee was flexed. The osteophytes taken off distal femur. The ACL and PCL were then released from distal femur. The tibia subluxated anteriorly. The external tibial alignment jig was then placed on the anterior face the tibia and adjusted 14 mm medially. Proximal tibial cut was made remove millimeter or 2 of bone from the most efficient aspect medial tibial plateau. Some osteophytes taken off medially. The tibia was sized to a size 67. Attention drawn the femur. The distal femur examined the sharp drill. Intramedullary canal was suction. A left 5 degree valgus cutting guide was placed. A distal femoral cutting block was pinned in place. This femoral cut was made take an additional 3 mm of bone off distal femur. The femur was then sized to a size 65. The AP cutting block was pinned parallel to the epicondylar axis which was 5 degrees of external rotation. The anterior cut, anterior chamfer, posterior cut, posterior chamfer cuts were made. The box cutting guide was placed in the just slight lateral and the box cut was made. The knee was flexed. The remnants of the medial and lateral menisci were excised. The osteophyte taken off the posterior aspect the femur. A trial femoral component was placed. The tibial tray was pinned Noelle external rotation and the drill and stem punch used. Defect in proximal tibia for the tibial tray. Knee was then trialed and the 12 mm insert fit most appr opriately. Attention drawn the patella. The patella was cleaned of all soft tissue. Patella thickness measured 20 mm in thickness was cut down to 13. Was sized to a size 28 patella. The lug holes were drilled for the 28 patella. The lateral osteophytes removed. Patella button was placed. Knee was taken through range of motion and the patella tracked okay with the no thumbs test. There was little tilt to it but we elected to accept this. Attention drawn to placing the permanent components. All trial components were removed. Bone plug was placed into this femur limit blood loss. A double batch Palacos G cement was mixed. A Biomet Vanguard size 65 left posterior Byce femoral component, size 67 tibial tray, a 12 mm posterior Byce polyethylene insert, and a 28 x 8 all poly patella then cemented in place. Knee was brought out into full extension till cement hardened. Final cement check was then performed. The pericapsular tissues were injected with total of 100 cc of Ortho mix. Patient did receive 1 g tranexamic acid. The tourniquet was then let down for final tourniquet time 51 minutes. Hemostasis assured with electrocautery. Extensor Meclomen closed with combination 1 PDS suture and 1 Vicryl suture in a [id number] fashion. Extensor Meclomen checked found to be intact and subcutaneous tissues then closed with 2 Dexon suture buried erupted fashion skin was closed skin hector. Leg was then cleaned and dried and sterile dressed with Xeroform, 4 x 4's, sterile cast padding, Tre bandage were applied. The patient then transferred to the recovery room in stable condition. Patient tolerated the procedure well and there were no complications. Boris Paredes, my physician faculty research assistant, was present for the entire procedure. His assistance was essential and required for appropriate patient positioning, prepping and draping, surgical exposure, performing the technical details of the operation, placement the implants, closure of the wound, and placement of the sterile bandage. I attest to the content of the Intraoperative Record and any orders documented therein. Any exceptions are noted below.
[2024-03-01] MEDS ORDERED: MAGNESIUM HYDROXIDE SUSP 30 ML UDC PO PRN (11:52)
[2024-03-01] MEDS ORDERED: FUROSEMIDE 40 MG TAB PO PRN (11:52)
[2024-03-01] MEDS ORDERED: POTASSIUM CHLORIDE 10 MEQ TABCR PO PRN (11:52)
[2024-03-01] MEDS ORDERED: ALBUTEROL HFA 8 GM INHALER INH PRN (11:52)
[2024-03-01] MEDS ORDERED: NALOXONE HCL 0.4 MG/1 ML VIAL/CARP IV PRN (11:52)
[2024-03-01] MEDS ORDERED: bisacodyL 10 MG SUPP PR PRN (11:52)
[2024-03-01] MEDS ORDERED: METOCLOPRAMIDE HCL INJ 5 MG/ML 2 ML VIAL IV PRN (11:52)
[2024-03-01] MEDS ORDERED: ALUMINUM/MAGNESIUM SUSP 30 ML UDC PO PRN (11:52)
[2024-03-01] MEDS ORDERED: diphenhydrAMINE Capsule 25 MG CAP PO PRN (11:52)
[2024-03-01] MEDS ORDERED: tiZANidine HCL 4 MG TABLET PO PRN (11:52)
--- NOTE | 2024-03-01 11:58 | XRay Report ---
XR knee LT 1 or 2V routine HISTORY: 63 years-old Female Surgical Post Op left knee arthroplasty COMPARISON: 02/11/2024 TECHNIQUE: 2 views of the left knee FINDINGS: Total joint arthroplasty with patellar resurfacing. Anterior midline skin hector with expected posto perative soft tissue swelling and deep tissue air. Additional hector project over the medial tissues . No acute fracture or dislocation. IMPRESSION: Satisfactory alignment of the left knee arthroplasty. ACT 112: Negative or not required by law. The above report was generated using voice recognition software. It may contain grammatical, syntax o r spelling errors. Electronically signed by: Phu Holly M.D. 03/01/2024 11:56 AM
--- NOTE | 2024-03-01 12:02 | Anesthesiology Progress Note ---
Date of Service March 01, 2024 Anesthesia Post Procedure Vital Signs Vital Signs: Temp Pulse Pulse Resp BP Pulse Ox O2 Del Method 03/01/24 11:52 36.7 C 81 18 134/68 99 Room Air 03/01/24 11:40 81 14 131/59 L 96 Room Air 03/01/24 11:30 36.5 C 80 18 137/57 L 99 Room Air 03/01/24 11:20 87 16 133/57 L 96 Room Air 03/01/24 11:10 81 16 133/59 L 100 Nasal Cannula 03/01/24 11:00 82 14 132/56 L 100 Oxymask 03/01/24 10:50 36 C L 95 H 14 127/60 98 Oxymask 03/01/24 07:29 36.6 C 71 20 129/75 99 Room Air O2 Flow Rate 03/01/24 11:52 03/01/24 11:40 03/01/24 11:30 03/01/24 11:20 03/01/24 11:10 3 03/01/24 11:00 4 03/01/24 10:50 6 03/01/24 07:29 Pain Intensity Left Knee: Pain Intensity: 2 Transfer of Care Handoff Completed per policy Notes Mental Status: alert / awake / arousable and participated in evaluation Patient Amnestic to Procedure: Yes Nausea / Vomiting: adequately controlled Pain: adequately controlled Airway Patency, RR, SpO2: stable & adequate BP & HR: stable & adequate Hydration State: stable & adequate Anesthetic Complications: no major complications apparent and Pt Satisfied with anesthetic care
[2024-03-01] MEDS: KETOROLAC 30 MG/ML VIAL IV SCH (12:50)
[2024-03-01] MEDS: oxyCODONE HCL IR 5 MG TAB (IMMEDIATE RELEASE) PO PRN ×2 (16:18→22:33)
[2024-03-01] MEDS: ASCORBIC ACID 500 MG TAB PO SCH (16:19)
[2024-03-01] MEDS: TRANEXAMIC ACID / 0.7% NACL 1,000 MG/100 ML BAG IV SCH (16:20)
[2024-03-01] MEDS: HYDROmorphone INJ 0.5 MG/0.5 ML SYR IV PRN (19:55)
[2024-03-01] MEDS: ATENOLOL 50 MG TABLET PO SCH (19:57)
[2024-03-01] MEDS: PANTOprazole 40 MG TAB PO SCH (19:58)
[2024-03-01] MEDS: ROSUVASTATIN CALCIUM 20 MG TAB PO SCH (19:58)
[2024-03-01] MEDS: ASPIRIN 81 MG ECTAB PO SCH (19:58)
[2024-03-01] MEDS: SENNA 8.6 MG TAB PO SCH (20:01)
[2024-03-01] MEDS: DOCUSATE SODIUM 100 MG CAP PO SCH (20:01)
[2024-03-01] MEDS ORDERED: SENNA 8.6 MG TAB PO SCH (21:00)
[2024-03-01] MEDS: HYDROmorphone INJ 1 MG/ML SYRINGE IV STA (21:25)
[2024-03-01] MEDS: HYDROmorphone INJ 1 MG/ML SYRINGE IV PRN (23:40)
[2024-03-02 06:35] LABS: Hematocrit (blood only) 34.4 % (37.0-47.0); Hemoglobin 11.7 g/dl (12.0-16.0); Mean Corpuscular Hemoglobin 29.7 pg (25.0-34.0); Mean Corpuscular Volume 87.3 fL (80.0-100.0); Mean Platelet Volume 9.7 fL (9.4-12.4); Platelet Count 241 K/uL (130-400); RDW Coefficient of Variation 12.3 % (11.5-14.5); RDW Standard Deviation 39.3 fL (36.4-46.3); Red Blood Count 3.94 M/uL (4.20-5.40); White Blood Count 6.75 K/ul (4.8-10.8)
[2024-03-02 06:59] LABS: Calcium 8.9 mg/dl (8.6-10.3); Creatinine Clr Calc Pharmacy 87.7 ml/min; Potassium 4.4 mmol/L (3.5-5.1)
[2024-03-02] MEDS: dexAMETHasone 10 MG in SYRINGE 0 ML IV SCH (07:46)
[2024-03-02] MEDS: DULoxetine HCL 20 MG CAP PO SCH (08:29)
[2024-03-02] MEDS: LOSARTAN POTASSIUM 50 MG TAB PO SCH (08:29)
[2024-03-02] MEDS: FEXOFENADINE HCL 180 MG TAB PO SCH (08:30)
[2024-03-02] MEDS: MULTIVITAMIN TAB PO SCH (08:30)
[2024-03-02] MEDS: CYANOCOBALAMIN (B-12) 500 MCG TABLET PO SCH (08:30)
[2024-03-02] MEDS: FOLIC ACID 1 MG TAB PO SCH (08:30)
[2024-03-02] MEDS ORDERED: [UNRECOGNIZED DRUG - OTHER] PO SCH (09:00)
[2024-03-02] MEDS: ONDANSETRON INJ 2 MG/ML 2 ML VIAL IV PRN (09:45)
--- NOTE | 2024-03-02 12:59 | Orthopedic Progress Note ---
Date of Service March 02, 2024 Assessment & Plan (1) Status post left knee replacement: Plan: 63-year-old female postop day 1 from left knee replacement currently doing okay. Had a really rough night. She is afraid to go home. Toradol seems to be helping. No chest pain or shortness of breath just knee pain. Plan: 1. DVT prophylaxis including thigh-high teds, SCDs, aspirin twice a day. 2. PT/OT. Weight-bear as tolerated left total knee protocol. 3. Pain control. Doing okay with current pain regimen. We may need to adjust this as time goes on. Will see how she does tonight with her pain. 4. Disposition. The plan is to discharge to home. Will keep her today make sure pain is adequately controlled and hopeful discharge tomorrow with home health. Admission and Anticipated Discharge Date Admission Date: March 01, 2024 Subjective 63-year-old female postop day 1 from left knee replacement. She is doing okay currently. She had a really rough night pain randle. She is doing a bit better now. No chest pain or shortness of breath. She is a bit for afraid to go home considering her pain last night. The Toradol seems to be helping. Physical Exam Physical Exam: Physical examination was a pleasant middle-age female. She is sitting up in bed looks pretty comfortable currently. Examination left leg reveals leg to be well aligned. She cannot quite do a straight leg raise. She can dorsiflex and plantarflex her foot appropriately. She is neurologically intact. Respiratory: normal respiratory effort, lungs clear to auscultation Cardiovascular: RRR, no murmur, no edema Gastrointestinal (Abdomen): normal bowel sounds, soft, nontender, no hepatosplenomegaly Results & Data Vital Signs (Past 12 Hours) Vital Signs Temp Pulse Resp BP Pulse Ox O2 Del Method 03/02/24 11:34 36.6 C 65 18 122/67 94 Room Air 03/02/24 07:29 36.7 C 64 18 127/74 98 Room Air 03/02/24 03:54 36.7 C 70 18 122/72 94 Room Air Laboratory Results Hemoglobin is 11.7. Hematocrit is 34.4. Electrolytes are stable.
[2024-03-02] MEDS ORDERED: Nursing to Pharmacy Communication SCH (17:45)
[2024-03-02] MEDS: ATENOLOL 50 MG TABLET PO SCH (18:11)
[2024-03-02 20:23] VITALS: RESP 16
--- NOTE | 2024-03-03 06:49 | Orthopedic Progress Note ---
Date of Service March 03, 2024 Assessment & Plan (1) Status post left knee replacement: Plan: 63-year-old female postop day 2 from a left knee replacement. She is doing a bit better. Still struggling with pain. Plan: 1. DVT prophylaxis including Thiede teds, SCDs, aspirin twice a day. 2. PT/OT. Weight-bear as top. Left total knee protocol. 3. Pain control. We are doing her best to manage her pain. She is on chronic narcotics and makes pain control bit difficult. Will continue to work with this. 4. Disposition plan to discharge to home with some home health hopefully later today Admission and Anticipated Discharge Date Admission Date: March 01, 2024 Subjective 63-year-old female postop day 2 from left knee replacement. She is doing a little bit better. Still really struggling with pain particular at nighttime. No new complaints of chest pain or shortness of breath. She is strictly knee pain. Symptoms do tend to wax and wane. Physical Exam Physical Exam: Physical exam shows a pleasant middle-age female. She is lying in bed. Lateral she looks reasonably comfortable this morning. Examination of left leg reveals dressing be clean dry and intact. There is no drainage. She can dorsiflex and plantarflex her foot appropriately. She is neurologically intact. Results & Data Vital Signs (Past 12 Hours) Vital Signs Temp Pulse Resp BP Pulse Ox O2 Del Method 03/02/24 20:22 37 C 67 16 144/75 H 95 Room Air
[2024-03-03 08:05] VITALS: PULSE 60; TEMP 97.9; O2SAT 96
[2024-03-03 10:31] VITALS: BP 115/63
== END 2024-03-03 13:01 | disposition home health service (06) ==
LOC: ASU 06:27 → 3E 06:27